=== PATIENT | female | born 1995 | race African-American/Black ===

== ENCOUNTER 2017-10-08 11:21 | Observation (INO) ==
[2017-10-08] MEDS ORDERED: SODIUM CHLORIDE 0.9% 1,000 ML IV PRN (13:09)
[2017-10-08 13:16] LABS: Apearance,Urine CLEAR (Clear); Bilirubin,Urine Negative (Negative); Blood, Urine Large mg/dL (Negative); Glucose,Urine (UA) Negative (Negative); Ketones,Urine Negative (Negative); Nitrite,Urine Negative (Negative); Protein,Urine Negative; RBC,Urine 285 /HPF (0-4); Squamous Epithelial Cell,Urine Occasional /HPF (0-10); Urine Color Yellow (Yellow); Urine Specific Gravity 1.012 (1.001-1.035); Urine Urobilinogen < 2.0 EU/DL (0.2-1.0)
[2017-10-08 13:20] LABS: PT Patient Result 10.8 SECS
[2017-10-08 13:34] LABS: Basophils % 0.7 % (0.0-0.8); Eosinophils # 0.1 10*3/uL (0.0-0.87); Eosinophils % 1.3 % (0.00-10.9); Hematocrit 23.4 VOL% (35.7-47.0); Immature Granulocytes % 0.4 %; Immature Granulocytes Absolute 0.02 #; Lymphocytes # 2.1 10*3/uL (1.4-4.0); Lymphocytes % 38.6 % (21.3-54.2); Mean Corpuscular HGB Conc 27.8 GM/DL (32-36); Mean Corpuscular Hemoglobin 17 PG (27-34); Mean Corpuscular Volume 62.1 FL (87-102); Monocytes # 0.4 10*3/uL (0.11-0.8); NRBC # 0.02 10*3/uL; Neutrophils # 2.9 10*3/uL (1.4-7.4); Platelet Count 287 T/CUMM (130-400); Red Blood Count 3.77 MC/CUMM (3.8-5.5); Red Cell Distribution Width 18.8 % (9.3-17.3); White Blood Count 5.6 T/CUMM (4-12)
[2017-10-08 13:35] LABS: Hemoglobin 6.5 GM/DL (12.0-16.0)
[2017-10-08 14:04] LABS: Giant Platelets Few; Hypochromasia 1+; Ovalocytes Slight; Platelet Estimate Adequate
[2017-10-08] MEDS ORDERED: ACETAMINOPHEN 325 MG TABLET PO PRN (14:05)
[2017-10-08] MEDS ORDERED: traZODone 50 MG TABLET PO PRN (14:05)
[2017-10-08] MEDS ORDERED: ONDANSETRON 4 MG/2 ML VIAL IV PRN (14:05)
[2017-10-08] MEDS ORDERED: SODIUM CHLORIDE 0.9% 1,000 ML IV SCH (14:30)
[2017-10-08 14:39] LABS: % Iron Saturation 2.4 % (18-50); Ferritin 1.1 ng/ml (8-252)
[2017-10-08 14:51] LABS: Risk Ratio 1.94
[2017-10-08] MEDS: amLODIPine 5 MG TABLET PO SCH (15:53)
[2017-10-08] MEDS: DOCUSATE SODIUM 100 MG CAPSULE PO SCH (21:59)
[2017-10-09 05:40] LABS: Basophils % 0.4 % (0.0-0.8); Eosinophils # 0.1 10*3/uL (0.0-0.87); Eosinophils % 1.2 % (0.00-10.9); Hematocrit 28.2 VOL% (35.7-47.0); Hemoglobin 8.2 GM/DL (12.0-16.0); Immature Granulocytes % 0.4 %; Immature Granulocytes Absolute 0.03 #; Lymphocytes # 2.7 10*3/uL (1.4-4.0); Lymphocytes % 32.9 % (21.3-54.2); Mean Corpuscular HGB Conc 29.1 GM/DL (32-36); Mean Corpuscular Hemoglobin 19 PG (27-34); Mean Corpuscular Volume 64.2 FL (87-102); Monocytes # 0.6 10*3/uL (0.11-0.8); Neutrophils # 4.7 10*3/uL (1.4-7.4); Neutrophils % 58.1 % (38.7-73.9); Platelet Count 270 T/CUMM (130-400); Red Blood Count 4.39 MC/CUMM (3.8-5.5); Red Cell Distribution Width 22.2 % (9.3-17.3); White Blood Count 8.1 T/CUMM (4-12)
[2017-10-09 06:03] LABS: Hypochromasia 2+
[2017-10-09 06:04] LABS: Microcytosis 2+; Polychromasia Slight
[2017-10-09 06:05] LABS: Elliptocytes Few; Platelet Estimate Normal
[2017-10-09 06:06] LABS: Target Cells Slight
[2017-10-09 06:29] LABS: Albumin 3.2 G/DL (3.4-5.0); Bilirubin,Total 0.5 MG/DL (0.2-1.0); Calcium 7.9 MG/DL (8.5-10.1); Osmolality,Calculated 281.1 MOS/KG (273-304); Potassium 3.6 MMOL/L (3.5-5.1); Total Protein 6.5 G/DL (6.4-8.3)
[2017-10-09 08:25] VITALS: BP 106/61
[2017-10-09] MEDS ORDERED: PANTOPRAZOLE 40 MG TABLET PO SCH (09:00)
[2017-10-09] MEDS: DOCUSATE SODIUM 100 MG CAPSULE PO SCH (10:25)
[2017-10-09] MEDS: amLODIPine 5 MG TABLET PO SCH (10:25)
== END 2017-10-09 12:05 | disposition home or self-care (01) ==
LOC: N.ED 11:21 → N.EDINP 11:21 → N.2E 15:16
PROVIDERS: ADMIT Internal Medicine; ATTEND Internal Medicine